=== PATIENT | male | born 1965 | race Caucasian/White ===

== ENCOUNTER 2020-11-21 14:17 | Emergency (ER) | payer SELFPAY ==
[~2020-11-21] VITALS: Ht 172.7 cm; Wt 65.0 kg
[2020-11-21] MEDS ORDERED: BACITRACIN ZINC OINT UDPKT TOP ONE (14:45)
[2020-11-21] MEDS ORDERED: LIDOCAINE HCL/PF 1% 10 MG/ML 5ML VIAL IJ ONE (14:45)
[2020-11-21] MEDS ORDERED: ACETAMINOPHEN WITH CODEINE 300/30MG TABLET PO ONE (14:45)
[2020-11-21] MEDS ORDERED: IBUP-2029 MT (15:04)
[2020-11-21] MEDS ORDERED: BO1 TP (15:04)
[2020-11-21] MEDS ORDERED: CEPH500C2 MT (15:04)
[2020-11-21] MEDS ORDERED: TETANUS, DIPHTHERIA, PERTUSSIS VAC/PF 0.5ML (>7YR OLD) IM ONE (15:30)
[2020-11-21 16:02] VITALS: BP 173/94
== END 2020-11-21 16:42 | disposition home or self-care (01) ==
LOC: ER 16:20
DX: S61.212A Laceration without foreign body of right middle finger without damage to nail, initial encounter (principal); S61.218A Laceration without foreign body of other finger without damage to nail, initial encounter; X58.XXXA Exposure to other specified factors, initial encounter; Y93.89 Activity, other specified; Y92.89 Other specified places as the place of occurrence of the external cause; Y99.8 Other external cause status
CPT/HCPCS: 12001; 73140; 99283; J3490